=== PATIENT | female | born 1930 | race Asian ===

== ENCOUNTER 2017-05-31 13:02 | Inpatient (IN) | payer OTHER ==
[~2017-05-31] VITALS: Ht 160 cm; Wt 60.5 kg
[~2017-05-31 13:02] MED LIST: AMIO100T4 GT; ASPI-556 PO; ATOR20TA86 GT; CITA10TA68 GT; DEXT1CAP3 GT; DSSL GT; HYDR-3965 PO; INSREG SQ; LORA0.5T2 PO; METO25 GT; MULT-950 PO; PREG50 PO
[2017-05-31 13:48] LABS: GLUCOSE,POINT OF CARE 170 MG/DL (70-110)
[2017-05-31] MEDS ORDERED: RIVA20TA GT (13:52)
[2017-05-31] MEDS ORDERED: PANT40TA25 GT (13:52)
[2017-05-31] MEDS ORDERED: ONDANSETRON HCL 4 MG/2 ML VIAL IVP PRN (15:15)
[2017-05-31] MEDS ORDERED: 0.9% SODIUM CHLORIDE 10 ML SYRINGE IVP PRN (15:15)
[2017-05-31] MEDS ORDERED: SODIUM CHLORIDE 0.9% 1,000 ML IV ONE (15:15)
[2017-05-31] MEDS ORDERED: ACETAMINOPHEN 325 MG TABLET PO PRN (15:15)
[2017-05-31 16:26] LABS: BASOPHILS % (AUTO) 0.7 % (0.0-2.0); EOSINOPHILS % (AUTO) 2.7 % (1.0-6.0); HEMATOCRIT 41.6 % (36-46); HEMOGLOBIN 13.3 g/dL (12.0-16.0); LYMPHOCYTES # (AUTO) 2.9 K/uL (1.0-4.8); LYMPHOCYTES % (AUTO) 35.7 % (22.0-44.0); MEAN CORPUSCULAR HEMOGLOBIN 23.7 pg (26.0-34.0); MEAN CORPUSCULAR HGB CONC 31.9 G/dL (31.0-37.0); MEAN CORPUSCULAR VOLUME 74 fL (80-100); MONOCYTES # (AUTO) 0.8 K/uL (0.1-1.0); MONOCYTES % (AUTO) 9.4 % (2.0-9.0); NEUTROPHILS # (AUTO) 4.2 K/uL (1.8-7.7); NEUTROPHILS % (AUTO) 51.5 % (40.0-70.0); PLATELET COUNT (AUTO) 230 K/uL (150-450); RED BLOOD CELL COUNT(AUTO) 5.62 MIL/uL (4.00-5.20); RED CELL DISTRIBUTION WIDTH 15.1 % (11.5-14.5)
[2017-05-31 16:42] LABS: PROTHROMBIN TIME 10.2 SEC (9.4-11.6)
[2017-05-31 16:47] LABS: ANION GAP 8 mmol/L (8-16); CALCIUM, TOTAL 10.8 mg/dL (8.8-10.5); CARBON DIOXIDE 31 mmol/L (22-29); CHLORIDE 102 mmol/L (98-107); CREATININE 0.83 mg/dL (0.60-1.30); GLOMERULAR FILTR. RATE CALC > 60 mL/min (>60); GLUCOSE,RANDOM 174 mg/dL (70-110); POTASSIUM 4.1 mmol/L (3.5-5.1); SODIUM SERUM 141 mmol/L (136-145); UREA NITROGEN, BLOOD 33 mg/dL (7-18)
[2017-05-31 16:59] LABS: ALANINE AMINOTRANSFERASE 21 U/L (12-78); ALBUMIN 2.8 g/dL (3.4-5.0); ALKALINE PHOSPHATASE 147 U/L (46-116); ASPARTATE AMINOTRANSFERASE 16 U/L (15-37); BILIRUBIN,TOTAL 0.3 mg/dL (0.1-1.0); TOTAL PROTEIN, SERUM 8.1 g/dL (6.4-8.2)
[2017-05-31 17:23] VITALS: BP 144/76
[2017-05-31 20:02] VITALS: BP 143/84
[2017-06-01 00:11] VITALS: BP 132/70
[2017-06-01 05:57] LABS: GLUCOMETER DEV NAME(LOC) 6N 2D; GLUCOSE,POINT OF CARE 123 MG/DL (70-110)
[2017-06-01 08:00] VITALS: BP 148/99
[2017-06-01 11:19] VITALS: BP 135/81
[2017-06-01] MEDS: METOPROLOL TARTRATE 25 MG TABLET GT SCH ×2 (12:00→20:26)
[2017-06-01] MEDS: PANTOPRAZOLE SODIUM 40 MG DR TABLET PO SCH (12:00)
[2017-06-01] MEDS ORDERED: HYDROCODONE/ACETAMINOPHEN 5-325 MG TABLET PO PRN (12:00)
[2017-06-01] MEDS: ASPIRIN 81 MG EC TABLET PO SCH (12:00)
[2017-06-01] MEDS: CITALOPRAM HYDROBROMIDE 10 MG TABLET GT SCH (12:00)
[2017-06-01] MEDS: LORazepam 0.5 MG TABLET PO SCH ×2 (12:00→20:26)
[2017-06-01] MEDS: SODIUM CHLORIDE 0.9% 1,000 ML IV SCH ×2 (12:21→23:20)
[2017-06-01] MEDS: PREGABALIN 50 MG CAPSULE PO SCH ×2 (14:13→20:26)
[2017-06-01 15:20] VITALS: BP 117/74
[2017-06-01] MEDS: RIVAROXABAN 20 MG TABLET GT SCH (17:30)
[2017-06-01] MEDS: DEXTROMETHORPHAN HBR/QUINIDINE 20/10 MG CAPSULE GT SCH (17:30)
[2017-06-01 19:30] VITALS: BP 133/81
[2017-06-01] MEDS ORDERED: ATORVASTATIN CALCIUM 20 MG TABLET GT SCH (21:00)
[2017-06-01 23:31] VITALS: BP 119/70
[2017-06-02 03:54] VITALS: BP 149/64
[2017-06-02] MEDS: DEXTROMETHORPHAN HBR/QUINIDINE 20/10 MG CAPSULE GT SCH ×2 (08:00→18:27)
[2017-06-02 08:34] VITALS: BP 139/72
[2017-06-02] MEDS: CITALOPRAM HYDROBROMIDE 10 MG TABLET GT SCH (09:00)
[2017-06-02] MEDS: ASPIRIN 81 MG EC TABLET PO SCH (09:00)
[2017-06-02] MEDS: PREGABALIN 50 MG CAPSULE PO SCH ×2 (09:00→18:27)
[2017-06-02] MEDS: PANTOPRAZOLE SODIUM 40 MG DR TABLET PO SCH (09:00)
[2017-06-02] MEDS: METOPROLOL TARTRATE 25 MG TABLET GT SCH (09:00)
[2017-06-02] MEDS: LORazepam 0.5 MG TABLET PO SCH (09:00)
[2017-06-02] MEDS: SODIUM CHLORIDE 0.9% 1,000 ML IV SCH (09:57)
[2017-06-02] MEDS ORDERED: SODIUM CHLORIDE 0.9% 1,000 ML IV ONE ×2 (11:02→11:15)
[2017-06-02 13:31] VITALS: BP 141/71
[2017-06-02 15:36] VITALS: BP 138/75
[2017-06-02] MEDS: RIVAROXABAN 20 MG TABLET GT SCH (18:27)
[2017-06-02] MEDS ORDERED: PROPOFOL 1% 20 ML VIAL IVP ONE (19:54)
[2017-06-03] MEDS ORDERED: HYDROGEN PEROXIDE 473 ML SOLUTION TP SCH (09:00)
[2017-06-03] MEDS ORDERED: POVIDONE-IODINE 10% 120 ML SOLUTION TP SCH (09:00)
== END 2017-06-02 19:55 | disposition home or self-care (01) | DRG 394 ==
LOC: EMS 13:05 → 6N 15:47
PROVIDERS: ADMIT Internal Medicine; ATTEND Internal Medicine
PROC: 0D20XUZ Change Feeding Device in Upper Intestinal Tract, External Approach (ICD-10-PCS; principal; 2017-06-02 12:30)
DX: K94.23 Gastrostomy malfunction (principal); N39.0 Urinary tract infection, site not specified; I48.91 Unspecified atrial fibrillation; E11.9 Type 2 diabetes mellitus without complications; G30.9 Alzheimer's disease, unspecified; E86.0 Dehydration; F02.80 Dementia in other diseases classified elsewhere, unspecified severity, without behavioral disturbance, psychotic disturbance, mood disturbance, and anxiety; E78.00 Pure hypercholesterolemia, unspecified; H35.30 Unspecified macular degeneration; I10 Essential (primary) hypertension; M19.90 Unspecified osteoarthritis, unspecified site; Z86.73 Personal history of transient ischemic attack (TIA), and cerebral infarction without residual deficits; Z87.440 Personal history of urinary (tract) infections; Z79.82 Long term (current) use of aspirin; Z79.899 Other long term (current) drug therapy
CPT/HCPCS: 82962; 87081; 96360; 99285; J2704; J7030

== ENCOUNTER 2018-04-05 11:57 | Emergency (ER) | payer MEDICARE, OTHER ==
[~2018-04-05] VITALS: Ht 160 cm; Wt 71.8 kg
[~2018-04-05 11:57] MED LIST changes: +PANT40TA25 GT; +RIVA20TA GT
[2018-04-05 12:27] LABS: GLUCOSE,POINT OF CARE 122 MG/DL (70-110)
[2018-04-05 12:47] LABS: PROTHROMBIN TIME 10.4 SEC (9.4-11.6)
[2018-04-05] MEDS ORDERED: DIATRIZOATE MEGLU/SOD 660/100 MG/ML 120 ML BOTTLE ONE (12:52)
[2018-04-05] MEDS ORDERED: LIDOCAINE/PF 1% 5 ML VIAL ONE (12:54)
[2018-04-05 14:14] VITALS: BP 160/90
== END 2018-04-05 14:58 | disposition home or self-care (01) ==
LOC: EMS 11:59
DX: Z43.1 Encounter for attention to gastrostomy (principal); F03.90 Unspecified dementia, unspecified severity, without behavioral disturbance, psychotic disturbance, mood disturbance, and anxiety; I10 Essential (primary) hypertension; E11.9 Type 2 diabetes mellitus without complications; E78.00 Pure hypercholesterolemia, unspecified; Z86.73 Personal history of transient ischemic attack (TIA), and cerebral infarction without residual deficits; Z98.890 Other specified postprocedural states; Z79.01 Long term (current) use of anticoagulants; Z79.4 Long term (current) use of insulin; Z79.82 Long term (current) use of aspirin; Z79.899 Other long term (current) drug therapy
CPT/HCPCS: 36245; 36415; 49450; 76000; 82962; 85610; 99284; C1769; C1887; J3490; Q9963

== ENCOUNTER → 2018-04-29 | Outpatient (CLI) | payer MEDICARE | END | disposition home or self-care (01) | LOC: RADMN 12:53 | PROVIDERS: ATTEND Internal Medicine Medical Oncology | DX: K94.23 Gastrostomy malfunction (principal); F03.90 Unspecified dementia, unspecified severity, without behavioral disturbance, psychotic disturbance, mood disturbance, and anxiety; E78.00 Pure hypercholesterolemia, unspecified; I48.91 Unspecified atrial fibrillation; I10 Essential (primary) hypertension; M19.90 Unspecified osteoarthritis, unspecified site; E11.9 Type 2 diabetes mellitus without complications; F32.9 Major depressive disorder, single episode, unspecified; F41.8 Other specified anxiety disorders; Z79.891 Long term (current) use of opiate analgesic; Z98.42 Cataract extraction status, left eye; Z86.69 Personal history of other diseases of the nervous system and sense organs; Z86.73 Personal history of transient ischemic attack (TIA), and cerebral infarction without residual deficits; Z79.82 Long term (current) use of aspirin; Z79.4 Long term (current) use of insulin; Z79.899 Other long term (current) drug therapy; Z98.890 Other specified postprocedural states; Z82.49 Family history of ischemic heart disease and other diseases of the circulatory system | CPT/HCPCS: 49450; 76000; C1769; C1887; 36245 ==